=== PATIENT | male | born 1955 | race Caucasian/White ===

== ENCOUNTER 2018-07-08 13:13 | Outpatient (REF) | payer MEDICAID, SELFPAY ==
[2018-07-08 18:50] LABS: HCT 40.7 % (40.0-50.0); HGB 13.5 g/dL (13.5-17.5); Mean Corp. HGB Concentration 33.2 g/dL (32.0-36.0); Mean Corpuscular Hemoglobin 30.1 pg (27.0-33.0); Mean Corpuscular Volume 90.8 fL (80-95); Mean Platelet Volume 9.6 fL (8.0-11.0); Platelet Count 246 x1000/uL (130-400); RBC 4.48 m/cumm (4.50-6.00); RBC Distribution Width 13.9 % (11.8-14.1)
== END 2018-07-08 13:33 ==
LOC: NCHCN 13:13
PROVIDERS: PCP Physician Assistant Medical; Visit Provider Nurse Practitioner Family
DX: R59.0 Localized enlarged lymph nodes (principal)
CPT/HCPCS: 85027

== ENCOUNTER 2018-11-18 15:36 | Outpatient (REF) | payer OTHER, SELFPAY ==
[2018-11-18 19:36] LABS: HCT 40.5 % (40.0-50.0); HGB 13.2 g/dL (13.5-17.5); Mean Corp. HGB Concentration 32.6 g/dL (32.0-36.0); Mean Corpuscular Hemoglobin 29.7 pg (27.0-33.0); Platelet Count 264 x1000/uL (130-400); RBC 4.45 m/cumm (4.50-6.00); White Blood Cell Count 6.93 k/cumm (4.4-10.8)
== END 2018-11-18 15:56 ==
LOC: NCHCN 15:36
PROVIDERS: PCP Physician Assistant Medical; Visit Provider Nurse Practitioner Family
DX: R10.32 Left lower quadrant pain (principal); Z13.71 Encounter for nonprocreative screening for genetic disease carrier status
CPT/HCPCS: 85027

== ENCOUNTER 2019-03-13 15:14 | Outpatient (REF) | payer OTHER, SELFPAY ==
[2019-03-13 18:56] LABS: HCT 41.1 % (40.0-50.0); HGB 13.8 g/dL (13.5-17.5); Mean Corp. HGB Concentration 33.6 g/dL (32.0-36.0); Mean Corpuscular Hemoglobin 30.3 pg (27.0-33.0); Mean Corpuscular Volume 90.1 fL (80-95); Mean Platelet Volume 9.8 fL (8.0-11.0); Platelet Count 262 x1000/uL (130-400); RBC 4.56 m/cumm (4.50-6.00); RBC Distribution Width 13.7 % (11.8-14.1); White Blood Cell Count 6.92 k/cumm (4.4-10.8)
[2019-03-13 20:20] LABS: ESR 9 mm/hr (1-20)
[2019-03-14 16:25] LABS: CRP, High Sensitivity 0.76 mg/L
[2019-03-15 10:36] LABS: Lyme Ab w Rflx to Lyme Confirm Negative
== END 2019-03-13 15:34 ==
LOC: NCHCN 15:14
PROVIDERS: PCP Physician Assistant Medical; Visit Provider Nurse Practitioner Family
DX: M54.89 Other dorsalgia (principal); G89.29 Other chronic pain; W57.XXXA Bitten or stung by nonvenomous insect and other nonvenomous arthropods, initial encounter; T14.8XXA Other injury of unspecified body region, initial encounter
CPT/HCPCS: 85027; 85652; 86141; 86618

== ENCOUNTER 2019-06-14 17:20 | Outpatient (REF) | payer OTHER, SELFPAY ==
[2019-06-16 10:04] LABS: PSA, Screening 15.4 ng/ml (0-4.5)
== END 2019-06-14 17:40 ==
LOC: NCHCN 17:20
PROVIDERS: PCP Physician Assistant Medical; Visit Provider Nurse Practitioner Family
DX: R97.20 Elevated prostate specific antigen [PSA] (principal); Z12.5 Encounter for screening for malignant neoplasm of prostate
CPT/HCPCS: 84153

== ENCOUNTER 2019-11-22 11:58 | Outpatient (REF) | payer OTHER, SELFPAY ==
[2019-11-24 11:55] LABS: PSA, Diagnostic 11.3 ng/mL (0.0-4.5)
== END 2019-11-22 12:18 ==
LOC: NCHCN 11:58
PROVIDERS: PCP Physician Assistant Medical; Visit Provider Nurse Practitioner Family
DX: R97.20 Elevated prostate specific antigen [PSA] (principal)
CPT/HCPCS: 84153

== ENCOUNTER 2020-05-03 10:39 | Outpatient (REF) | payer OTHER, SELFPAY ==
[2020-05-03 19:09] LABS: Abs Immature Grans 0.01 10^3/uL (0.0-0.06); Absolute Basophil Count 0.07 10^3/uL (0.0-0.2); Absolute Eosinophil Count 0.24 10^3/uL (0.0-0.7); Absolute Lymphocyte Count 1.17 10^3/uL (1.2-3.4); Absolute Monocyte Count 0.52 10^3/uL (0.1-0.8); Absolute Neutrophil Count 4.32 10^3/uL (1.2-6.7); Basophils % 1.1; Eosinophils % 3.8; HCT 40.6 % (40.0-50.0); HGB 13.2 g/dL (13.5-17.5); Immature Grans % 0.2; Lymphocytes % 18.5; MCH 29.1 pg (27.0-33.0); MCHC 32.5 % (32.0-36.0); MCV 89.6 fL (80-95); MPV 9.9 fL (8.0-11.0); Monocytes % 8.2; Neutrophils % 68.2; Nucleated RBC 0 %; Platelet Count 308 10^3/uL (130-400); RBC 4.53 10^6/uL (4.36-5.78); RDW 13.5 % (11.8-14.1); RDW-SD 44.1 fL; WBC 6.33 10^3/uL (4.4-10.8)
[2020-05-03 19:27] LABS: ALT 17 U/L (16-63); AST 20 U/L (15-37); Albumin 3.7 g/dL (3.4-5.0); Alkaline Phosphatase 81 U/L (46-116); Anion Gap 7.9 mmol/L (3-11); BUN 16 mg/dL (7-18); Bilirubin, Total 0.7 mg/dL (0.2-1.0); CO2 29.1 mmol/L (21.0-32.0); CREATININE 1.19 mg/dL (0.70-1.30); Chloride 103 mmol/L (98-107); Glucose 100 mg/dL (74-106); Potassium 4.5 mmol/L (3.5-5.1); Sodium 140 mmol/L (136-145)
== END 2020-05-03 10:59 ==
LOC: NCHCN 10:39
PROVIDERS: PCP Physician Assistant Medical; Visit Provider Physician Assistant
DX: N28.89 Other specified disorders of kidney and ureter (principal); N40.0 Benign prostatic hyperplasia without lower urinary tract symptoms
CPT/HCPCS: 80053; 85025; 87086

== ENCOUNTER 2020-05-23 14:10 | Outpatient (REF) | payer OTHER, SELFPAY ==
[2020-05-23 19:04] LABS: HCT 40.4 % (40.0-50.0); MCH 29.1 pg (27.0-33.0); MCHC 32.2 % (32.0-36.0); MCV 90.6 fL (80-95); MPV 9.8 fL (8.0-11.0); Platelet Count 267 10^3/uL (130-400); RBC 4.46 10^6/uL (4.36-5.78); RDW 13.3 % (11.8-14.1); RDW-SD 44.3 fL; WBC 4.67 10^3/uL (4.4-10.8)
[2020-05-23 19:21] LABS: Calculated LDL 157 mg/dL (<100); Cholesterol 227 mg/dL (<200); HDL Cholesterol 51 mg/dL (40-60); Triglyceride 99 mg/dL (<150)
== END 2020-05-23 14:30 ==
LOC: NCHCN 14:10
PROVIDERS: PCP Physician Assistant Medical; Visit Provider Nurse Practitioner Family
DX: E78.5 Hyperlipidemia, unspecified (principal); R10.30 Lower abdominal pain, unspecified
CPT/HCPCS: 80061; 85027

== ENCOUNTER 2020-07-22 16:15 | Outpatient (REF) | payer OTHER, SELFPAY ==
[2020-07-22 20:43] LABS: Creatine Kinase 116 U/L (39-308)
[2020-07-22 21:13] LABS: ESR 11 mm/hr (1-20)
[2020-07-23 16:50] LABS: CRP, High Sensitivity 0.94 mg/L (See Note)
== END 2020-07-22 16:35 ==
LOC: NCHCN 16:15
PROVIDERS: PCP Physician Assistant Medical; Visit Provider Nurse Practitioner Family
DX: M79.10 Myalgia, unspecified site (principal)
CPT/HCPCS: 82550; 85652; 86141

== ENCOUNTER → 2020-08-12 09:08 | Outpatient (BNVA) | payer OTHER, SELFPAY | PROVIDERS: PCP Physician Assistant Medical; Referring Provider Physician Assistant Medical; Visit Provider Psychiatry & Neurology Neurology | DX: M54.5 Low back pain (principal); M54.2 Cervicalgia; R29.818 Other symptoms and signs involving the nervous system | CPT/HCPCS: 99205 ==

== ENCOUNTER 2020-11-12 18:04 | Outpatient (REF) | payer OTHER, SELFPAY ==
[2020-11-12 18:09] LABS: Abs Immature Grans 0.01 10^3/uL (0.0-0.06); Absolute Basophil Count 0.07 10^3/uL (0.0-0.2); Absolute Eosinophil Count 0.27 10^3/uL (0.0-0.7); Absolute Lymphocyte Count 1.71 10^3/uL (1.2-3.4); Absolute Monocyte Count 0.57 10^3/uL (0.1-0.8); Absolute Neutrophil Count 2.52 10^3/uL (1.2-6.7); Basophils % 1.4; Eosinophils % 5.2; HCT 39.8 % (40.0-50.0); Immature Grans % 0.2; Lymphocytes % 33.2; MCHC 32.7 % (32.0-36.0); MCV 91.7 fL (80-95); MPV 9.7 fL (8.0-11.0); Monocytes % 11.1; Neutrophils % 48.9; Nucleated RBC 0 %; Platelet Count 226 10^3/uL (130-400); RBC 4.34 10^6/uL (4.36-5.78); RDW 13.5 % (11.8-14.1); RDW-SD 46.5 fL; WBC 5.15 10^3/uL (4.4-10.8)
[2020-11-12 18:19] LABS: Anion Gap 8.2 mmol/L (3-11); BUN 22 mg/dL (7-18); CO2 27.8 mmol/L (21.0-32.0); Chloride 105 mmol/L (98-107); Glucose 87 mg/dL (74-106); Potassium 4.5 mmol/L (3.5-5.1); Sodium 141 mmol/L (136-145)
[2020-11-12 18:29] LABS: Troponin I < 0.05 ng/mL (<0.06)
== END 2020-11-12 18:05 | disposition home or self-care (01) ==
LOC: NCHCN 18:04
PROVIDERS: PCP Physician Assistant Medical; Visit Provider Physician Assistant
DX: R07.89 Other chest pain (principal); R06.02 Shortness of breath; R61 Generalized hyperhidrosis
CPT/HCPCS: 80048; 84484; 85025

== ENCOUNTER 2021-02-27 10:43 | Outpatient (REF) | payer MEDICARE, SELFPAY ==
[2021-02-27 18:31] LABS: ESR 9 mm/hr (0-20)
[2021-02-27 18:32] LABS: Abs Immature Grans 0.01 10^3/uL (0.0-0.06); Absolute Basophil Count 0.07 10^3/uL (0.0-0.2); Absolute Eosinophil Count 0.22 10^3/uL (0.0-0.7); Absolute Lymphocyte Count 1.08 10^3/uL (1.2-3.4); Absolute Monocyte Count 0.45 10^3/uL (0.1-0.8); Basophils % 1.7; Eosinophils % 5.5; HCT 39.6 % (40.0-50.0); HGB 12.6 g/dL (13.5-17.5); Immature Grans % 0.2; Lymphocytes % 26.9; MCH 28.6 pg (27.0-33.0); MCHC 31.8 % (32.0-36.0); MPV 9.7 fL (8.0-11.0); Monocytes % 11.2; Neutrophils % 54.5; Nucleated RBC 0 %; Platelet Count 262 10^3/uL (130-400); RDW 13.5 % (11.8-14.1); RDW-SD 44.8 fL; WBC 4.01 10^3/uL (4.4-10.8)
[2021-02-27 18:33] LABS: Absolute Neutrophil Count 2.19 10^3/uL (1.2-6.7)
[2021-02-27 19:19] LABS: ALT 25 U/L (16-63); AST 25 U/L (15-37); Albumin 3.7 g/dL (3.4-5.0); Alkaline Phosphatase 75 U/L (46-116); Anion Gap 7.6 mmol/L (3-11); BUN 23 mg/dL (7-18); Bilirubin, Total 0.9 mg/dL (0.2-1.0); C-Reactive Protein 0.26 mg/dL (0.0-0.3); CO2 27.4 mmol/L (21.0-32.0); Calcium 8.8 mg/dL (8.5-10.1); Chloride 108 mmol/L (98-107); Creatine Kinase 265 U/L (39-308); Glucose 105 mg/dL (74-106); Potassium 4.3 mmol/L (3.5-5.1); Sodium 143 mmol/L (136-145); TSH (W/Ref FT4) 1.09 uIU/mL (0.36-3.74); Total Protein 6.5 g/dL (6.4-8.2)
[2021-02-28 16:16] LABS: Rheumatoid Factor <8.6 IU/mL (<12.0)
[2021-03-01 23:24] LABS: Anaplasma phagocytophilum Negative (Negative); B. miyamotoi PCR Negative (Negative); Babesia divergens/MO-1 Negative (Negative); Babesia duncani Negative (Negative); Babesia microti Negative (Negative); Ehrlichia chaffeensis Negative (Negative); Ehrlichia ewingii/canis Negative (Negative); Ehrlichia muris eauclairensis Negative (Negative)
[2021-03-03 11:59] LABS: Lyme Ab w Rflx to Lyme Confirm Negative (Negative)
[2021-03-03 16:14] LABS: ANA Interpretation Negative (Negative)
== END 2021-02-27 10:44 | disposition home or self-care (01) ==
LOC: NCHCN 10:43
PROVIDERS: PCP Physician Assistant Medical; Visit Provider Physician Assistant
DX: M79.10 Myalgia, unspecified site (principal); M25.50 Pain in unspecified joint; E78.5 Hyperlipidemia, unspecified
CPT/HCPCS: 80053; 82550; 85652; 87798; 83735; 84443; 85025; 86038; 86140; 86431; 86618

== ENCOUNTER 2023-06-08 13:31 | Outpatient (REF) | payer MEDICARE, SELFPAY ==
[2023-06-08 19:20] LABS: HCT 41.7 % (40.0-50.0); HGB 13.5 g/dL (13.5-17.5); MCHC 32.4 % (32.0-36.0); MCV 90 fL (80-95); MPV 9.6 fL (8.0-11.0); Platelet Count 292 10^3/uL (130-400); RBC 4.66 10^6/uL (4.36-5.78); RDW 13.4 % (11.8-14.1); RDW-SD 43.8 fL; WBC 5.33 10^3/uL (4.4-10.8)
[2023-06-08 20:42] LABS: ALT 24 U/L (16-63); AST 27 U/L (15-37); Albumin 3.8 g/dL (3.4-5.0); Alkaline Phosphatase 98 U/L (46-116); Anion Gap 11.1 mmol/L (3-11); BUN 19 mg/dL (7-18); Bilirubin, Total 0.5 mg/dL (0.2-1.0); CO2 25.9 mmol/L (21.0-32.0); CREATININE 1.3 mg/dL (0.70-1.30); Calculated LDL 161 mg/dL (<100); Chloride 105 mmol/L (98-107); Cholesterol 232 mg/dL (<200); Estimated GFR 59.47 (mL/min/1.73m2); Glucose 90 mg/dL (74-106); HDL Cholesterol 54 mg/dL (40-60); Magnesium 2.1 mg/dL (1.8-2.4); Sodium 142 mmol/L (136-145); TSH (W/Ref FT4) 1.78 uIU/mL (0.36-3.74); Total Protein 7.5 g/dL (6.4-8.2); Triglyceride 88 mg/dL (<150); Vitamin B12 562 pg/mL (193-986)
[2023-06-09 18:19] LABS: PSA, Screening 0.8 ng/mL (<=4.5)
== END 2023-06-08 13:32 | disposition home or self-care (01) ==
LOC: NCHCN 13:31
PROVIDERS: PCP Physician Assistant Medical; Visit Provider Physician Assistant
DX: E78.5 Hyperlipidemia, unspecified (principal); R20.0 Anesthesia of skin; K58.9 Irritable bowel syndrome, unspecified; R51.9 Headache, unspecified; Z12.5 Encounter for screening for malignant neoplasm of prostate; K21.00 Gastro-esophageal reflux disease with esophagitis, without bleeding; R97.20 Elevated prostate specific antigen [PSA]
CPT/HCPCS: 80053; 80061; 84153; 85027; 82607; 83735; 84443

== ENCOUNTER 2023-10-20 15:13 | Outpatient (REF) | payer MEDICARE, SELFPAY ==
[2023-10-20 20:06] LABS: Calculated LDL 172 mg/dL (<100); Cholesterol 239 mg/dL (<200); HDL Cholesterol 50 mg/dL (40-60); Triglyceride 89 mg/dL (<150)
== END 2023-10-20 15:14 | disposition home or self-care (01) ==
LOC: NCHCN 15:13
PROVIDERS: PCP Physician Assistant Medical; Referring Provider Physician Assistant; Visit Provider Physician Assistant
DX: E78.5 Hyperlipidemia, unspecified (principal)
CPT/HCPCS: 80061

== ENCOUNTER 2024-06-09 12:04 | Outpatient (REF) | payer MEDICARE, SELFPAY ==
[2024-06-09 19:46] LABS: Abs Immature Grans 0.03 10^3/uL (0.0-0.06); Absolute Basophil Count 0.07 10^3/uL (0.0-0.2); Absolute Eosinophil Count 0.21 10^3/uL (0.0-0.7); Absolute Lymphocyte Count 1.33 10^3/uL (1.2-3.4); Absolute Monocyte Count 0.39 10^3/uL (0.1-0.8); Absolute Neutrophil Count 3.35 10^3/uL (1.2-6.7); Basophils % 1.3 %; Eosinophils % 3.9 %; HCT 38.7 % (40.0-50.0); HGB 12.9 g/dL (13.5-17.5); Immature Grans % 0.6 %; Lymphocytes % 24.7 %; MCH 29.5 pg (27.0-33.0); MCHC 33.3 % (32.0-36.0); MCV 88 fL (80-95); MPV 9.7 fL (8.0-11.0); Monocytes % 7.2 %; Neutrophils % 62.3 %; Platelet Count 288 10^3/uL (130-400); RBC 4.38 10^6/uL (4.36-5.78); RDW 13.6 % (11.8-14.1); WBC 5.38 10^3/uL (4.4-10.8)
[2024-06-09 20:03] LABS: ALT 21 U/L (16-63); AST 25 U/L (15-37); Albumin 3.5 g/dL (3.4-5.0); Alkaline Phosphatase 94 U/L (46-116); Anion Gap 7.6 mmol/L (3-11); BUN 22 mg/dL (7-18); Bilirubin, Total 0.67 mg/dL (0.2-1.0); CO2 25.4 mmol/L (21.0-32.0); CREATININE 1.4 mg/dL (0.70-1.30); Calcium 8.7 mg/dL (8.5-10.1); Chloride 107 mmol/L (98-107); Estimated GFR 54.07 (mL/min/1.73m2); Glucose 166 mg/dL (74-106); Potassium 4.4 mmol/L (3.5-5.1); Sodium 140 mmol/L (136-145); TSH (W/Ref FT4) 1.66 uIU/mL (0.36-3.74); Total Protein 7.1 g/dL (6.4-8.2)
[2024-06-12 09:26] LABS: PSA, Diagnostic 0.8 ng/mL (<=6.5)
[2024-06-12 10:05] LABS: Hepatitis C Ab w Rflx HCV PCR Negative (Negative)
== END 2024-06-09 12:05 | disposition home or self-care (01) ==
LOC: NCHCN 12:04
PROVIDERS: PCP Physician Assistant Medical; Visit Provider Physician Assistant
DX: R61 Generalized hyperhidrosis (principal); R97.20 Elevated prostate specific antigen [PSA]
CPT/HCPCS: 80053; 86803; 84153; 84443; 85025

== ENCOUNTER 2024-06-12 15:18 | Outpatient (REF) | payer MEDICARE, SELFPAY ==
[2024-06-12 18:42] LABS: Iron 79 ug/dL (65-175); Total Iron Binding Capacity 219 ug/dL (250-450); Transferrin Sat 36 % (20-55)
[2024-06-12 18:54] LABS: Hemoglobin A1C 5.9 % (<5.7)
[2024-06-12 19:00] LABS: Calculated LDL 120 mg/dL (<100); Cholesterol 207 mg/dL (<200); Ferritin 202 ng/mL (26-388); HDL Cholesterol 51 mg/dL (40-60); Triglyceride 184 mg/dL (<150)
== END 2024-06-12 15:19 | disposition home or self-care (01) ==
LOC: NCHCN 15:18
PROVIDERS: PCP Physician Assistant Medical; Visit Provider Physician Assistant
DX: E78.5 Hyperlipidemia, unspecified (principal)
CPT/HCPCS: 80061; 82728; 83036; 83540; 83550